=== PATIENT | male | born 1995 ===

== ENCOUNTER 2016-07-03 05:05 | Outpatient (RCR) | payer OTHER ==
[~2016-07-03] VITALS: Ht 170.2 cm; Wt 67.6 kg
[2016-07-03] MEDS ORDERED: Succinylcholine 20mg/ml 10ml vial ONE (05:06)
[2016-07-03] MEDS ORDERED: Methohexital Sodium Syr 100mg/10ml IVP ONE (05:06)
[2016-07-03] MEDS ORDERED: Diazepam 10mg/2ml Inj ONE (05:06)
[2016-07-03] MEDS ORDERED: NS 550ML IV ONE (05:06)
[2016-07-03] MEDS ORDERED: Atropine Sulfate 0.4mg/ml inj IVP PRN (15:30)
== END 2016-07-25 | disposition home or self-care (01) ==
LOC: ECT 05:05
DX: F31.5 Bipolar disorder, current episode depressed, severe, with psychotic features (principal); F25.9 Schizoaffective disorder, unspecified; F19.959 Other psychoactive substance use, unspecified with psychoactive substance-induced psychotic disorder, unspecified
CPT/HCPCS: 90870; J0330; J3360; J7040

== ENCOUNTER 2016-07-31 08:35 | Outpatient (RCR) | payer OTHER ==
[~2016-07-31] VITALS: Ht 170.2 cm; Wt 67.6 kg
[2016-07-31] MEDS ORDERED: Succinylcholine 20mg/ml 10ml vial ONE (08:36)
[2016-07-31] MEDS ORDERED: Ketorolac 60mg Inj ONE (08:36)
[2016-07-31] MEDS ORDERED: Diazepam 10mg/2ml Inj ONE (08:36)
[2016-07-31] MEDS ORDERED: Methohexital Sodium Syr 100mg/10ml IVP ONE (08:36)
[2016-07-31] MEDS ORDERED: NS 550ML IV ONE (08:36)
[2016-08-02] MEDS ORDERED: Ketorolac 60mg Inj IV ONE (11:44)
== END 2016-08-22 | disposition home or self-care (01) ==
LOC: ECT 08:35
DX: F31.5 Bipolar disorder, current episode depressed, severe, with psychotic features (principal)
CPT/HCPCS: 90870; J0330; J2405; J3360; J7040

== ENCOUNTER 2016-08-30 07:22 | Outpatient (RCR) | payer OTHER | END 2016-09-22 | disposition home or self-care (01) | LOC: ECT 07:22 | DX: F31.5 Bipolar disorder, current episode depressed, severe, with psychotic features (principal) ==